=== PATIENT | female | born 1990 | race Caucasian/White ===

== ENCOUNTER → 2022-07-17 07:36 | Outpatient (CLI) | payer OTHER, SELFPAY | PROVIDERS: Visit Provider Physician Assistant Medical | DX: J02.9 Acute pharyngitis, unspecified (principal) | CPT/HCPCS: 87070; 87077; 87147 ==

== ENCOUNTER 2022-07-22 08:59 | Emergency (ER) | payer OTHER, SELFPAY ==
[2022-07-22 09:29] VITALS: BP 138/80; PULSE 100; RESP 20; TEMP 37; O2SAT 98; BMI 31.4
[2022-07-22 12:08] VITALS: PULSE 91; O2SAT 96
[2022-07-22 12:09] VITALS: BP 139/71; PULSE 89; O2SAT 96
[2022-07-22] MEDS: OXYMETAZOLINE NASAL SPRAY 15 ML 2 SPRAYS NASAL (12:12)
--- NOTE | 2022-07-22 12:17 | ED_ITS ---
HPI - Epistaxis <YOLANDE West - Last Filed: 07/22/22 14:33> General Chief complaint: Nasal Problem Stated complaint: covid+ nose bleeding 25 mins taking asprin Time Seen by Provider: 07/22/22 12:05 Source: patient Mode of arrival: Family Vehicle History of Present Illness HPI Narrative: This is a 32-year-old female presents to the emergency department for a nosebleed coming out of her right [place] and states that she is COVID positive. She states that she is been using Sasha-Alto which has aspirin in it and thinks it contributed to her bleeding. She denies any bleeding at this time, denies any trauma, denies high fever, states that she has congestion and sneezing but denies any dry crusty nasal drainage. Related Data Previous Rx's Medication Instructions Recorded fluticasone propionate 50 1 spray intranasal DAILY PRN nasal 07/22/22 mcg/actuation nasal congestion #16 grams spray,suspension (Allergy Relief (fluticasone)) penicillin V potassium 500 mg 500 mg PO BID strep throat 10 days 07/25/22 tablet #20 tabs Allergies Allergy/AdvReac Type Severity Reaction Status Date / Time Sulfa (Sulfonamide AdvReac Mild Verified 07/22/22 09:29 Antibiotics) Review of Systems <YOLANDE West - Last Filed: 07/22/22 14:33> Review of Systems Narrative: Review of systems is negative for acute abnormalities unless otherwise noted in HPI Patient History <YOLANDE West - Last Filed: 07/22/22 14:33> Social History Smoking Status: Never smoker Smoking Status: Never smoker alcohol intake frequency: a few times a week Substance Use Type: does not use Exam <YOLANDE West - Last Filed: 07/22/22 14:33> Narrative Exam Narrative: Reviewed vitals signs and nursing notes. General: cooperative, comfortable, in no acute distress, well groomed HEENT: symmetrical facial expressions, moist mucous membranes, left naris without any bleeding, pink mucosa and is moist, right nares with no bleeding or clots, superficial vein visualized, Afrin sprayed directly on it and patient did not have any bleeding. Cardiovascular: regular rate and rhythm, no peripheral edema, warm extremities Respiratory: normal effort, able to speak in complete sentences, without wheezing, stridor, or abnormal breath sounds. No retractions or tachypnea. Neuro: normal speech and cognition, A&O x3, ambulatory, clear speech Psych: mental status is grossly normal, congruent mood, normal affect, pleasant and cooperative Initial Vital Signs Initial Vital Signs: Vital Signs Temperature 98.6 F 07/22/22 09:29 Pulse Rate 100 H 07/22/22 09:29 Respiratory Rate 20 07/22/22 09:29 Blood Pressure 138/80 07/22/22 09:29 Pulse Oximetry 98 07/22/22 09:29 Oxygen Delivery Method 07/22/22 09:29 <Valarie Savage DO - Last Filed: 07/26/22 08:33> Initial Vital Signs Initial Vital Signs: Vital Signs Temperature 98.6 F 07/22/22 09:29 Pulse Rate 100 H 07/22/22 09:29 Respiratory Rate 20 07/22/22 09:29 Blood Pressure 138/80 07/22/22 09:29 Pulse Oximetry 98 07/22/22 09:29 Oxygen Delivery Method 07/22/22 09:29 Course <YOLANDE West - Last Filed: 07/22/22 14:33> Orders Ordered: Discontinued Medications Ketorolac Tromethamine (Ketorolac 10 Mg Tablet) 10 mg PO NOW ONE Stop: 07/22/22 12:14 Last Admin: 07/22/22 12:28 Dose: 10 mg Documented By: INGRID Oxymetazoline HCl (Oxymetazoline Nasal [place] 15 Ml) 2 sprays NASAL NOW ONE Stop: 07/22/22 12:08 Last Admin: 07/22/22 12:12 Dose: 2 sprays Documented By: CTS Vital Signs Vital signs: Vital Signs - 8 hr 07/22/22 09:29 07/22/22 12:08 07/22/22 12:09 Temperature 98.6 F Pulse Rate 100 H 91 H Respiratory Rate 20 Blood Pressure 138/80 139/71 Pulse Oximetry 98 96 Oxygen Delivery Method Room Air 07/22/22 12:09 Temperature Pulse Rate 89 Respiratory Rate Blood Pressure Pulse Oximetry 96 Oxygen Delivery Method <Valarie Savage DO - Last Filed: 07/26/22 08:33> Orders Ordered: Discontinued Medications Ketorolac Tromethamine (Ketorolac 10 Mg Tablet) 10 mg PO NOW ONE Stop: 07/22/22 12:14 Last Admin: 07/22/22 12:28 Dose: 10 mg Documented By: INGRID Oxymetazoline HCl (Oxymetazoline Nasal [place] 15 Ml) 2 sprays NASAL NOW ONE Stop: 07/22/22 12:08 Last Admin: 07/22/22 12:12 Dose: 2 sprays Documented By: INGRID Vital Signs Vital signs: Vital Signs - 8 hr 07/22/22 09:29 07/22/22 12:08 07/22/22 12:09 Temperature 98.6 F Pulse Rate 100 H 91 H Respiratory Rate 20 Blood Pressure 138/80 139/71 Pulse Oximetry 98 96 Oxygen Delivery Method Room Air 07/22/22 12:09 Temperature Pulse Rate 89 Respiratory Rate Blood Pressure Pulse Oximetry 96 Oxygen Delivery Method MDM - Epistaxis <YOLANDE West - Last Filed: 07/22/22 14:33> [facility] Narrative Medical decision making narrative: This is a 32-year-old female presents to the emergency department who is COVID positive and has previous episode of epistaxis which resolved prior to seeing the patient. She use nasal clamps and had successful cessation of her right anterior naris bleeding. Superficial vessel was visualized, Afrin spray directly on it, patient clamped and did not have any further bleeding, her nares were patent bilaterally. Encouraged to use Afrin only if bleeding, otherwise to use saline nasal spray or fluticasone as needed for congestion, recommended cetirizine and Mucinex as needed for congestion and or productive cough. Tylenol and ibuprofen as needed every 8 hours for fever. Patient did not have any loss of consciousness, or significant hemorrhage, her vital signs are stable and she was ambulatory without any deficit. Patient is appropriate and amenable to discharge home. Vital signs are stable on repeat examination is unremarkable. Patient has been informed of results. Patient has been given strict return to ER precautions for any new or worsening symptoms. Patient understands to follow up closely with outpatient providers as instructed. Patient understands plan and agrees to discharge home. All questions and concerns answered at this time. Discharge Plan Departure Patient Disposition: Home Clinical Impression: Epistaxis, COVID-19 Instructions: DI for Nosebleed, COVID-19 Activity Restrictions/Additional Instructions: *You have been diagnosed with COVID which likely started the nosebleed. Drink plenty of water today and over the next few days and check her temperature every 6 hours. Please take Tylenol and ibuprofen for fever and pain, Tylenol 650 mg every 6 hours with 600 mg of ibuprofen every 6 hours can be helpful. If you notice bleeding been discontinue ibuprofen, use the Afrin nasal spray and clamp for at least 15 minutes, if you notice clots developing in your nose and the bleeding finally stops, below the mount and spray the Afrin in your nose and the clamp on again. That can help. Decongestants can increase your blood pressure slightly and may dry out your nose which can cause it to bleed again. Please try Zyrtec for the congestion and add Flonase or Sudafed during the day as needed and NyQuil at night. You may use saline nasal spray to keep your nose moist if it gets dry and bleeds. Please come back for a significant nosebleed so we can help prevent blood loss. Please rest and do not over exert yourself. I hope you feel better soon. *What to do: *Please continue to take your regular medications as directed. [ x New medication prescriptions sent to your pharmacy: [ ] [ ] New medication written as a paper prescription [ ] No new medications given *Please follow up with your primary care provider in 2-3 days, call for an appointment. Let them know you were seen in the Emergency Department and that we asked that you be seen for follow-up. We will electronically transmit a record of today's note if your PCP is in our system *If you do not have a primary care provider please contact [phone] to establish care with one of [facility] primary care providers. *Return to Emergency Department if you should have any new, worsening, or concerning symptoms, such as [fever greater than 101F, chills, worsening pain, persistent vomiting or other bothersome symptoms]. Prescriptions: New fluticasone propionate [Allergy Relief (fluticasone)] 50 mcg/actuation spray,suspension 1 spray intranasal DAILY PRN (Reason: nasal congestion) Qty: 16 0RF Rx Instructions: administer into each nostril No Action penicillin V potassium 500 mg tablet 500 mg PO BID 10 Days Qty: 20 0RF Referrals: Miscellaneous,Doctor, [Primary Care Provider] - Visit Report Forms: Patient Portal/API <Valarie Savage DO - Last Filed: 07/26/22 08:33> Cosign ED Attending Joyature Attestation: I was immediately available in the department for consultation. Documentation has been reviewed.
[2022-07-22] MEDS: KETOROLAC 10 MG TABLET PO (12:28)
== END 2022-07-22 12:36 | disposition home or self-care (01) ==
PROVIDERS: Emergency Provider Nurse Practitioner Critical Care Medicine
DX: U07.1 COVID-19 (principal); R04.0 Epistaxis
CPT/HCPCS: 99283; A9270

== ENCOUNTER → 2023-02-11 08:40 | Outpatient (CLI) | payer OTHER, SELFPAY ==
[2023-02-11 10:13] LABS: Influenza A - CEPHEID Flu A NEGATIVE (NEGATIVE); Influenza B - CEPHEID Flu B NEGATIVE (NEGATIVE); Respiratory Syncytial Virus Negative (Negative)
[2023-02-11 10:17] LABS: COVID-19 CEPHEID 4-PLEX PCR Negative (Negative)
== END ==
PROVIDERS: Visit Provider Nurse Practitioner Family
DX: J02.9 Acute pharyngitis, unspecified (principal); Z20.822 Contact with and (suspected) exposure to COVID-19
CPT/HCPCS: 0241U; 87070